=== PATIENT | female | born 1965 | race American Indian/Alaskan Native ===

== ENCOUNTER 2017-11-07 12:12 | Day surgery (SDC) | payer BC, OTHER ==
[~2017-11-07] VITALS: Ht 160 cm; Wt 136.5 kg
[2017-11-07] MEDS ORDERED: METFORMIN HCL500 MG PO (12:38)
[2017-11-07] MEDS ORDERED: LISINOPRIL2.5 MG PO (12:39)
[2017-11-07] MEDS ORDERED: IBUPROFEN800 MG PO (12:39)
--- NOTE | 2017-11-07 15:15 | NUR ---
WARM BLANKET ON. UPDATE GIVEN. IV PATENT.
--- NOTE | 2017-11-07 17:45 | NUR ---
11/07/17 174 Gl[address] Gibson 1740 PATIENT ARRIVES TO PACU AWAKE, C/O ABDOMINAL CRAMPING. ENCOURAGED TO PASS GAS, DR TA AWARE AND AGREES WITH PLAN. NO NEW ORDERS. RESP EVEN AND UNLABORED, NC AT 2 LITERS. 174 PATIENT PASSING SIGNIFICANT AMOUNT OF GAS.
--- NOTE | 2017-11-08 13:35 | OR ---
[facility] [address], [place] [address] Signed DATE OF OPERATION: 11/07/2017 SURGEON: Ruel Ta MD PREOPERATIVE DIAGNOSIS: Colon screening. POSTOPERATIVE DIAGNOSES: 1. Scattered diverticula of sigmoid. 2. Polyps x4. PROCEDURE: Total colonoscopy to cecum with cold morcellation polypectomy x3 and hot snare polypectomy x1. ANESTHESIA: Intravenous sedation, fentanyl 100 mcg, Versed 8 mg. INDICATION: This 52-year-old [place] woman is a patient of DEWEY Leyva and is referred for colon screening. She has no symptoms of bleeding, diarrhea, or constipation and has no known family history of colon cancer. She understands the risks of bleeding, infection, and perforation related to colonoscopy and wished to proceed. FINDINGS: The prep was excellent. Complete colonoscopy was undertaken to the cecum. There was a small polyp of the cecum, which was excised with cold morcellation technique and a linear adenomatous polyp at 70 cm, excised with hot snare polypectomy technique. Two other small polyps, one at 50 and another at the low rectum were excised with cold technique as well. PROCEDURE: The patient brought to the endoscopy suite and placed in lateral decubitus position given intravenous sedation to the point of slurred speech and nystagmus. Digital rectal examination was normal. An Olympus video colonoscope was passed in the rectum and manipulated throughout the colon, ultimately intubating the cecum itself. The ileocecal valve and appendiceal orifice were normal. A small polyp was noted there, was excised with cold morcellation technique. The scope was withdrawn and no other findings were noted until the left Electronically Signed By: RUEL TA MD 11/08/17 1335 PATIENT NAME: SUPA MINA OPERATIVE REPORT DATE OF : 65 PHYSICIAN: RUEL TA MD REPORT #: [id number] REPORT IS CONFIDENTIAL AND NOT TO BE RELEASED WITHOUT AUTHORIZATION [facility] [address], [place] [address] Signed colon where at 70 cm, a linear somewhat sessile polyp was noted. Narrow-band imaging confirmed this likely to be an adenoma. This was excised with hot snare polypectomy technique without problem. Further withdrawal of scope showed another small polyp at 50 cm, which was excised with cold morcellation technique. Withdrawal of scope showed a few diverticula of the sigmoid and in the low rectum on retroflexed view, a small polyp probably hyperplastic was noted. It was excised with cold morcellation technique. The scope was straightened, withdrawn, and removed and the patient was taken to recovery room in good condition. CONCLUDING DIAGNOSIS: Polyps x4, minimal diverticular change. PLAN: Recommend repeat colonoscopy in 3 years sooner if clinically indicated. She will return to the ongoing care of Sri Nur at [facility]. MD MAGDALENE Olivo/MARTÍN /[id number] cc: DEWEY Howard Electronically Signed By: RUEL TA MD 11/08/17 1335 PATIENT NAME: SUPA MINA OPERATIVE REPORT DATE OF : 65 PHYSICIAN: RUEL TA MD REPORT #: [id number] REPORT IS CONFIDENTIAL AND NOT TO BE RELEASED WITHOUT AUTHORIZATION
== END 2017-11-07 18:00 | disposition home or self-care (01) ==
LOC: OPS 12:12 → DS 12:12 → OPS 13:00 → DS 13:00 → OPS 18:00
PROVIDERS: Surgery
PROC: 0DBE8ZX Excision of Large Intestine, Via Natural or Artificial Opening Endoscopic, Diagnostic (ICD-10-PCS; 2017-11-07)
PROC: 0DBP8ZX Excision of Rectum, Via Natural or Artificial Opening Endoscopic, Diagnostic (ICD-10-PCS; 2017-11-07)
PROC: 0DBG8ZX Excision of Left Large Intestine, Via Natural or Artificial Opening Endoscopic, Diagnostic (ICD-10-PCS; 2017-11-07)
PROC: 0DBH8ZX Excision of Cecum, Via Natural or Artificial Opening Endoscopic, Diagnostic (ICD-10-PCS; principal; 2017-11-07 13:00)
DX: Z12.11 Encounter for screening for malignant neoplasm of colon (principal); D12.6 Benign neoplasm of colon, unspecified; K57.30 Diverticulosis of large intestine without perforation or abscess without bleeding; K62.1 Rectal polyp; E66.2 Morbid (severe) obesity with alveolar hypoventilation; Z88.0 Allergy status to penicillin; Z98.51 Tubal ligation status; Z98.890 Other specified postprocedural states; Z68.43 Body mass index [BMI] 50.0-59.9, adult
CPT/HCPCS: 99153; G0500; J2250; J3010